=== PATIENT | male | born 1955 | race Caucasian/White ===

== ENCOUNTER 2019-02-07 16:04 | Emergency (ER) | payer OTHER | END 2019-02-07 19:20 | disposition home or self-care (01) | LOC: FTE 19:20 | DX: S99.911A Unspecified injury of right ankle, initial encounter (principal); X50.1XXA Overexertion from prolonged static or awkward postures, initial encounter; Y92.9 Unspecified place or not applicable | CPT/HCPCS: 29515; 73610-RT; 73630; 99283-25 ==